=== PATIENT | female | born 1970 | race Caucasian/White ===

== ENCOUNTER 2017-06-11 06:59 | Emergency (ER) | payer OTHER ==
[~2017-06-11] VITALS: Ht 165.1 cm; Wt 84.6 kg
[2017-06-11 07:04] VITALS: BP 161/88; PULSE 80; RESP 18; TEMP 98.2; O2SAT 99
--- NOTE | 2017-06-11 07:25 | PD ---
HPI Chief Complaint: Pain: Acute or Chronic Time Seen by Provider: 07:11 Travel History International Travel<30 days: No Contact w/Intl Traveler<30days: No Traveled to known affect area: No History of Present Illness HPI Patient is a 46-year-old female who presents to emergency room for evaluation of right arm pain. She reports that right arm pain began last week on Sunday. She reports that throughout the week and the weekend, she did do a lot of activities which included painting and yard work. Patient is right-hand- dominant at baseline. Patient reports that pain is exacerbated when she moves her right shoulder, reports that the pain radiates to her right elbow. Patient denies any cervical tenderness, patient denies any trauma or fall. Patient denies any fevers or chills, patient denies any nausea or vomiting. Patient reports that she is concerned that she may have a slipped cervical disc as she has had history of cervical fusion by Dr. Stack in the past. Reports that prior to her cervical fusion, she had similar pains to her left arm. Patient is here to have her neck radiographically evaluated. Patient denies any weakness or tingling or numbness to her right or left extremities. PFSH Past Medical History Asthma: Yes Blood Disorders: No Cancer: No Cardiovascular Problems: No Endocrine: No Genitourinary: No Immune Disorder: No Musculoskeletal: Yes Neurologic: Yes Psychiatric: No Reproductive: No Respiratory: Yes ?: Not Past Surgical History Gynecologic Surgery: Yes (TUBAL LIGATION) Social History Alcohol Use: No Tobacco Use: No Substance Use: No Allergies-Medications (Allergen,Severity, Reaction): Coded Allergies: No Known Allergies (Verified , 10/20/14) Reported Meds & Prescriptions Reported Meds & Active Scripts Active No Active Prescriptions or Reported Medications Review of Systems General / Constitutional: No: Fever Eyes: No: Visual changes HENT: No: Headaches Cardiovascular: No: Chest Pain or Discomfort Respiratory: No: Shortness of Breath Gastrointestinal: No: Abdominal Pain Genitourinary: No: Dysuria Musculoskeletal: Positive: Pain (right shoulder/humerus) Skin: No Rash Neurologic: No: Weakness Psychiatric: No: Depression Endocrine: No: Polydipsia Hematologic/Lymphatic: No: Easy Bruising Physical Exam Narrative GENERAL: Well-nourished, well-developed patient. SKIN: Focused skin assessment warm/dry. HEAD: Normocephalic. EYES: No scleral icterus. No injection or drainage. NECK: Supple, trachea midline. No JVD or lymphadenopathy. Patient with no midline cervical tenderness, no radiculopathy on exam CARDIOVASCULAR: Regular rate and rhythm without murmurs, gallops, or rubs. RESPIRATORY: Breath sounds equal bilaterally. No accessory muscle use. GASTROINTESTINAL: Abdomen soft, non-tender, nondistended. MUSCULOSKELETAL: No cyanosis, or edema. Patient with normal range of motion to bilateral shoulders, pulses intact, neurovascular intact. BACK: Nontender without obvious deformity. No CVA tenderness. Data Data Last Documented VS Vital Signs Date Time Temp Pulse Resp B/P (MAP) Pulse Ox O2 Delivery O2 Flow Rate FiO2 06/11/17 07:04 98.2 80 18 161/88 (112) 99 Room Air Orders Orders Ct Cerv Spine W/O Contrast (06/11/17 ) [facility] Medical Decision Making Medical Screen Exam Complete: Yes Emergency Medical Condition: Yes Medical Record Reviewed: Yes Interpretation(s) Vital Signs Date Time Temp Pulse Resp B/P (MAP) Pulse Ox O2 Delivery O2 Flow Rate FiO2 06/11/17 07:04 98.2 80 18 161/88 (112) 99 Room Air Differential Diagnosis Differential includes cervical radiculopathy, shoulder sprain, muscle sprain, tendinitis Narrative Course 46-year-old female with history cervical fusion, presents to emergency room with complaints of right-sided shoulder pain since Sunday of last week. Pain is worse with exertion, reports that she is right-hand dominant and has been painting as well as doing a lot of yard work this weekend which has exacerbated her pain. Patient is concerned as she has history of cervical fusion, patient with no radicular cervical pain, pain is localized to her right humerus/shoulder. Patient's pulses is intact, patient is neurovascularly intact. Plan to obtain CT of neck to evaluate cervical spine as this is her main concern. She does not suffer any emergencies at this time. Ultimately, she will follow up with Dr. Stack in the office and will return to ER as needed. I did encourage rest and ice and NSAIDS for pain relief. A copy of pt's ct report was given to her at discharge as she will bring this to her doctor's office for follow up. All findings as well as incidental findings reviewed with patient in detail. Patient with most likely musculoskeletal right-sided shoulder pain due to overuse. Again need for rest, ice and NSAIDs for pain relief. Patient will return to emergency room as needed. Diagnosis Primary Impression: Shoulder pain, right Qualified Codes: M25.511 - Pain in right shoulder Patient Instructions: General Instructions Additional Instructions: Please follow up with Dr. Stack in the office Please bring your radiology report with you to your office appointment Return to ER as needed Return to ER if symptoms persist Rest, ice and NSAIDS for pain Please follow up with your primary care doctor Scripts No Active Prescriptions or Reported Meds Disposition: 01 DISCHARGE HOME Condition: Stable Sabine David DO Jun 11, 2017 07:25
--- NOTE | 2017-06-11 07:50 | RADRPT ---
EXAM DATE/TIME: 06/11/2017 07:24 [facility] COMPARISON: No previous studies available for comparison. INDICATIONS : Right sided neck pain radiating down arm. No injury. RADIATION DOSE: 25.72 CTDIvol (mGy) MEDICAL HISTORY : None SURGICAL HISTORY : Fusion, cervical. Tubal ligation. ENCOUNTER: Initial ACUITY: 3 days PAIN SCALE: 7/10 LOCATION: Right neck TECHNIQUE: Volumetric scanning of the cervical spine was performed. Multiplanar reconstructions in the sagittal, coronal and oblique axial planes were performed. Using automated exposure control and adjustment o f the mA and/or kV according to patient size, radiation dose was kept as low as reasonably achievable to obtain optimal diagnostic quality images. DICOM format image data is available electronically f or review and comparison. FINDINGS: Sagittal and coronal reformats demonstrate anterior cervical fusion across the C5/6 level. The fusion hardware is well-positioned. The alignment of the spine is anatomic. C2-C3: The bony spinal canal is normal in size. No evidence of disc bulge or herniation. The neural forami na are bilaterally patent. C3-C4: There is minimal central disc bulge. The thecal space and foramina are adequate. There are mild degen erative changes in the facet joints bilaterally. C4-C5: There is a broad-based disc bulge which effaces the ventral thecal sac. This abuts the ventral aspect of the cord. The foramina appear adequate. There are mild degenerative changes in the facet joints b ilaterally. C5-C6: This level is fused. The hardware is intact. The thecal space and foramina appear adequate. C6-C7: There is a degenerated disc with osteophytic ridging and broad based disc bulge. This is eccentric to wards the left. There is encroachment on the lateral recess and base of the foramina on the left. The foramina on the right appears adequate. This effaces the ventral thecal sac and abuts the ventral as pect of the cord. There is mild facet arthritis bilaterally. C7-T1: The bony spinal canal is normal in size. No evidence of disc bulge or herniation. The neural forami na are bilaterally patent. CONCLUSION: 1. The fusion at C5-6 appears solid. 2. Broad-based, left-sided disc protrusion at C6-7. 3. Degenerated disc with small broad based disc bulge at C4-5. 4. Individual levels are dictated in detail above. Arvind Alfaro MD on June 11, 2017 at 7:44 Board Certified Radiologist. This report was verified electronically.
[2017-06-11] MEDS ORDERED: DIAZ5 PO (07:56)
[2017-06-11] MEDS ORDERED: PERC5TAB12 PO (07:56)
== END 2017-06-11 08:14 | disposition home or self-care (01) ==
LOC: PHED 06:59
DX: M25.511 Pain in right shoulder (principal)
CPT/HCPCS: 72125

== ENCOUNTER → 2017-10-29 | Outpatient (CLI) | payer OTHER ==
[~2017-10-29] MED LIST: DIAZ5 PO; PERC5TAB12 PO
[2017-10-29 13:47] LABS: AUTOMATED NEUTROPHIL # 5.9 TH/MM3 (1.8-7.7); BASOPHIL # 0.1 TH/MM3 (0-0.2); BASOPHIL % 1.3 % (0.0-2.0); EOSINOPHIL # 0.3 TH/MM3 (0-0.4); EOSINOPHIL % 3.2 % (0.0-4.0); HEMOGLOBIN 13.3 GM/DL (11.6-15.3); LYMPH % 18.1 % (9.0-44.0); LYMPHOCYTE # 1.5 TH/MM3 (1.0-4.8); MEAN CELL VOLUME 85.7 FL (80.0-100.0); MEAN CORPUSCULAR HEMOGLOBIN 29.2 PG (27.0-34.0); MEAN CORPUSCULAR HGB CONC 34.1 % (32.0-36.0); MEAN PLATELET VOLUME 8.4 FL (7.0-11.0); MONO % 6.8 % (0.0-8.0); MONOCYTE # 0.6 TH/MM3 (0-0.9); NEUT % 70.6 % (16.0-70.0); PLATELET COUNT 383 TH/MM3 (150-450); RED BLOOD COUNT 4.55 MIL/MM3 (4.00-5.30); RED CELL DISTRIBUTION WIDTH 13.2 % (11.6-17.2); WHITE BLOOD COUNT 8.3 TH/MM3 (4.0-11.0)
[2017-10-29 14:09] LABS: BACTERIA, URINE RARE /hpf; BILIRUBIN, URINE NEG (NEG); BLOOD, URINE MOD (NEG); GLUCOSE,URINE NEG (NEG); KETONE, URINE NEG (NEG); MUCUS URINE FEW /lpf (OCC); NITRITE,URINE NEG (NEG); PH, URINE 6.5 (5.0-8.5); SQUAMOUS EPITHELIAL CELL URINE 8 /hpf (0-5); URINE COLOR YELLOW (YELLW/STRAW); URINE LEUKOCYTE ESTERASE LARGE (NEG)
== END ==
LOC: CPRE 13:14
PROVIDERS: ATTEND Obstetrics & Gynecology
DX: Z01.812 Encounter for preprocedural laboratory examination (principal); N92.0 Excessive and frequent menstruation with regular cycle; N94.6 Dysmenorrhea, unspecified; D25.0 Submucous leiomyoma of uterus
CPT/HCPCS: 36415; 81001; 84702; 85025

== ENCOUNTER 2017-10-31 10:39 | Observation (INO) | payer OTHER ==
[~2017-10-31] VITALS: Ht 165.1 cm; Wt 81.9 kg
[2017-10-31] MEDS ORDERED: ceFAZolin 2 GM PREMIX 50 ML IV SCH (11:15)
[2017-10-31] MEDS ORDERED: CHLORHEXIDINE GLUCONATE 2 % 1 PACK (2 CLOTHS) TOPICAL PRN (11:15)
[2017-10-31] MEDS ORDERED: LACTATED RINGER'S 1000 ML IV PRN (11:15)
[2017-10-31] MEDS ORDERED: SODIUM CHLORID 0.9% 500 ML IV PRN (11:15)
[2017-10-31] MEDS ORDERED: ACETAMINOPHEN 1000 MG/100 ML 100 ML IV SCH (11:15)
[2017-10-31] MEDS ORDERED: POVIDONE IODINE 5% (ANTISEPSIS KIT) 4 APPLICATIONS EACH NARE PRN (11:15)
[2017-10-31] MEDS ORDERED: METOPROLOL TARTRATE 25 MG TAB PO PRN (11:15)
[2017-10-31] MEDS ORDERED: LIDOCAINE HCL 1% PF 5 ML SYRINGE OTHER ONE (12:00)
[2017-10-31] MEDS ORDERED: DEXAMETHASONE SOD PHOS 4 MG/ML VIAL IV ONE (12:00)
[2017-10-31] MEDS ORDERED: ROCURONIUM INJ 50 MG/5 ML SYRINGE IV PUSH ONE (12:00)
[2017-10-31] MEDS ORDERED: GLYCOPYRROLATE 1 MG/5 ML SYRINGE IV PUSH ONE (12:00)
[2017-10-31] MEDS ORDERED: KETOROLAC TROMETHAMINE 30 MG/ML (IVP) VIAL IV PUSH ONE (12:00)
[2017-10-31] MEDS ORDERED: ONDANSETRON HCL 4 MG/2 ML VIAL IV PUSH ONE (12:00)
[2017-10-31] MEDS ORDERED: NEOSTIGMINE 5 MG/5 ML SYRINGE IV PUSH ONE (12:00)
[2017-10-31] MEDS ORDERED: LACTATED RINGER'S 1000 ML INJ 1,000 ML IV ONE (12:00)
[2017-10-31 12:03] VITALS: PULSE 86
[2017-10-31] MEDS ORDERED: MIDAZOLAM HCL 5 MG/5 ML VIAL ONE (12:19)
[2017-10-31] MEDS ORDERED: PROPOFOL 200 MG/20 ML AMP ONE (12:20)
[2017-10-31] MEDS ORDERED: BUPIVACAINE LIPOSOME PF 1.3% 20 ML VIAL ONE (12:20)
[2017-10-31] MEDS ORDERED: SODIUM CHLORIDE 0.9% 20 ML VIAL ONE (12:21)
[2017-10-31] MEDS ORDERED: fentaNYL CITRATE 250 MCG/5 ML AMP ONE (12:33)
--- NOTE | 2017-10-31 13:26 | EKG ---
Date Performed: 10/31/2017 Time Performed: 11:24:26 PTAGE: 46 years EKG: Sinus rhythm NORMAL ECG PREVIOUS TRACING : 11/03/2008 10.38 DOCTOR: Felipe Robles Interpretating Date/Time 10/31/2017 13:25:36
[2017-10-31] MEDS ORDERED: ONDANSETRON HCL 4 MG/2 ML VIAL IV PUSH PRN (14:30)
[2017-10-31] MEDS ORDERED: diphenhydrAMINE HCL 25 MG CAP PO PRN (14:30)
[2017-10-31] MEDS ORDERED: PROMETHAZINE INJ 25 MG/ML VIAL IM PRN (14:30)
[2017-10-31] MEDS ORDERED: ZOLPIDEM TARTRATE 5 MG TAB PO PRN (14:30)
[2017-10-31] MEDS ORDERED: ONDANSETRON INJ 8 MG in DEXTROSE 5% IN WATER INJ 50 ML IV PUSH PRN ×2 (14:45)
[2017-10-31] MEDS ORDERED: HYDROmorphone HCL PF 2 MG/ML VIAL IV PUSH PRN (14:45)
[2017-10-31] MEDS: D5-1/2 NS + KCL 20 MEQ INJ 1,000 ML IV SCH (15:00)
[2017-10-31] MEDS: KETOROLAC TROMETHAMINE 30 MG/ML (IVP) VIAL IVP SCH ×2 (15:00→21:23)
[2017-10-31] MEDS ORDERED: *morphine SULFATE 10 MG/ML PERIprocedure ONLY ONE (15:35)
[2017-10-31] MEDS ORDERED: *ONDANSETRON 4 MG VIAL PERIprocedural Use ONLY ONE (15:36)
[2017-10-31 16:17] VITALS: BP 133/82; PULSE 80; RESP 18; TEMP 98.3; O2SAT 96
[2017-10-31] MEDS: DOCUSATE SODIUM 100 MG CAP PO SCH (17:49)
[2017-10-31 17:54] LABS: HEMATOCRIT 38.2 % (35.0-46.0); HEMOGLOBIN 12.9 GM/DL (11.6-15.3)
[2017-10-31 20:00] VITALS: BP 137/83; PULSE 100; RESP 16; TEMP 98.1; O2SAT 96
[2017-10-31] MEDS ORDERED: ACETAMINOPHEN 1000 MG/100 ML VIAL IV SCH (20:00)
[2017-11-01] VITALS: BP 113/66; PULSE 76; RESP 16; TEMP 97.7; O2SAT 98
[2017-11-01] MEDS: KETOROLAC TROMETHAMINE 30 MG/ML (IVP) VIAL IVP SCH ×2 (03:06→08:57)
[2017-11-01 05:00] VITALS: BP 110/70; PULSE 75; RESP 16; TEMP 98.2
[2017-11-01 05:50] LABS: AUTOMATED NEUTROPHIL # 12.8 TH/MM3 (1.8-7.7); BASOPHIL % 0.2 % (0.0-2.0); EOSINOPHIL # 0.1 TH/MM3 (0-0.4); EOSINOPHIL % 0.5 % (0.0-4.0); HEMATOCRIT 35.5 % (35.0-46.0); HEMOGLOBIN 12.1 GM/DL (11.6-15.3); LYMPHOCYTE # 1.2 TH/MM3 (1.0-4.8); MEAN CELL VOLUME 85.6 FL (80.0-100.0); MEAN CORPUSCULAR HEMOGLOBIN 29.1 PG (27.0-34.0); MEAN PLATELET VOLUME 8.3 FL (7.0-11.0); MONO % 6.6 % (0.0-8.0); NEUT % 84.7 % (16.0-70.0); PLATELET COUNT 319 TH/MM3 (150-450); RED BLOOD COUNT 4.15 MIL/MM3 (4.00-5.30); WHITE BLOOD COUNT 15.1 TH/MM3 (4.0-11.0)
[2017-11-01 06:24] LABS: BICARBONATE 26.7 MEQ/L (21.0-32.0); CALCIUM 8.2 MG/DL (8.5-10.1); CREATININE 0.71 MG/DL (0.50-1.00)
[2017-11-01] MEDS: DOCUSATE SODIUM 100 MG CAP PO SCH (06:56)
[2017-11-01 07:52] VITALS: BP 122/59; PULSE 86; RESP 18; TEMP 99; O2SAT 97
--- NOTE | 2017-11-01 08:17 | HHI.DCPOC ---
Discharge Care Plan Report Symptoms to Your Doctor -Temperature above 100.5 degrees -Redness, of incision or excessive or foul smelling drainage -Unusual pain or calf pain -Increased vaginal bleeding -Painful or difficulty urinating -Feelings of extreme sadness or anxiety after 2 weeks Goals to Promote Your Health * To prevent worsening of your condition and complications * To maintain your health at the optimal level Directions to Meet Your Goals Take your medications as prescribed Follow your dietary instruction Follow activity as directed Ensure plenty of rest for recovery Drink fluids for hydration Keep your appointments as scheduled Take your immunizations and boosters as scheduled If your symptoms worsen call your PCP, if no PCP go to Urgent Care Center or Emergency Room Smoking is Dangerous to Your Health. Avoid second hand smoke Call the 24-hour crisis hotline for domestic abuse at Yemi Simmons MD Nov 01, 2017 08:17
[2017-11-01] MEDS: D5-1/2 NS + KCL 20 MEQ INJ 1,000 ML IV SCH (08:56)
--- NOTE | 2017-11-01 14:29 | MP ---
cc: Yemi Simmons MD DATE OF OPERATION: 10/31/2017 PREOPERATIVE DIAGNOSES: Menorrhagia and dysmenorrhea, uterine fibroids. POSTOPERATIVE DIAGNOSES: Menorrhagia and dysmenorrhea, uterine fibroids. PROCEDURE: Laparoscopic supracervical hysterectomy with bilateral salpingectomy. ANESTHESIA: General ET. SURGEON: Yemi Simmons MD [employer] TE[employer]ER: Alda Goodson ESTIMATED BLOOD LOSS: About 200 mL. FLUIDS: 1 liter crystalloid. OBJECTIVE FINDINGS: Under induction of adequate general endotracheal anesthesia, the patient was prepped and draped supine on the operating room table in dorsolithotomy position in sterile fashion with the bladder being drained by Seth catheterization. The abdomen was opened through a 3 cm curving infraumbilical incision using a knife to cut down through skin to the fascia. The fascia opened transversely. The rectus muscle split in the midline and the peritoneum opened bluntly. The mini GelPort was placed, laparoscope inserted and a 5 port placed in the left lower quadrant and AirSeal port placed right lower quadrant. The uterus was about 12 weeks size enlarged with fibroids. The tubes appeared interupted. Ovaries were normal. Cul-de-sacs were clear. Appendix was normal. Liver edge was normal. Working first on the left, the harmonic scalpel was used to take the mesosalpinx, left round ligament, left broad ligament, left side of the bladder flap and left uterine vessels and the same on the right. Harmonic scalpel was now used to amputate the fundus from the cervix. The fundus and tubes placed in the pouch and the pouch exteriorized and hand morcellated to assure no spillage in the peritoneum. The scope was now reinserted. Irrigation performed. No bleeding was evident. Ureters were inspected. Good peristalsis. No bleeding. The operative sites were coated with Evicel. GelPort removed. Peritoneum sutured with running stitch of 2-0 Vicryl. The fascia with a running locking stitch of 0 Vicryl to the midline and tied. Subcutaneous closed with 3-0 Vicryl. The skin with running subcuticular 3-0 Monocryl. The scope was now reinserted in the lower port sites and used to inspect the operative sites. This revealed good closure of the GelPort site. No bleeding. The scope was now removed. Gas was allowed to escape. The small ports removed and sutured with 3-0 Monocryl subcuticular. All counts were correct. The patient was taken out of stirrups. She was awakened and taken to the recovery room in good condition. Yemi Simmons MD JAW/rt , 10:17 PM , 11:42 PM JULIAN
== END 2017-11-01 11:08 | disposition home or self-care (01) ==
LOC: HSDC 10:39 → HSDI 14:24 → H1EA 16:05
PROVIDERS: ADMIT Obstetrics & Gynecology; ATTEND Obstetrics & Gynecology
DX: N92.0 Excessive and frequent menstruation with regular cycle (principal); N94.6 Dysmenorrhea, unspecified; D25.9 Leiomyoma of uterus, unspecified; N83.8 Other noninflammatory disorders of ovary, fallopian tube and broad ligament
CPT/HCPCS: 00840; 58542; 80048; 85014; 85018; 85025; 88307; 93005; C9290; G0378; J0131; J0690; J1100; J1885; J2250; J2270; J2405; J2710; J3010; J3480; J7120